=== PATIENT | male | born 1960 | race Caucasian/White ===

== ENCOUNTER 2016-11-01 06:46 | Day surgery (SDC) | payer MEDICARE, OTHER ==
[~2016-11-01] VITALS: Ht 175.3 cm; Wt 66.0 kg
[~2016-11-01 06:46] MED LIST: AMBIEN DPS5 MG PO; APRESOLINE-DPS50 MG PO; CARVEDILOL25 MG PO; COREG25 MG PO; EMLA CREAM 2.5%5 GM TP; HYDROCODONE 7.7.5 MG PO; LASIX DPS80 MG PO; MIRALAX PACKET17 GM PO; NORVASC DPS10 MG PO; SENOKOT S1 TAB PO; VELPHORO500 MG PO; ZESTRIL DPS40 MG PO; ZOFRAN4 MG PO
[2016-11-26] MEDS ORDERED: COUMADIN DPS2 MG PO (20:34)
[2016-11-26] MEDS ORDERED: VIAGRA50 MG PO (20:34)
[2016-11-26] MEDS ORDERED: NITROSTAT0.4 MG SL (20:35)
[2016-11-26] MEDS ORDERED: RENAGEL800 MG PO (20:35)
== END 2016-11-01 10:49 | disposition home or self-care (01) ==
LOC: RAD.S 06:46 → EDSTATUS 08:00 → RAD.S 10:49
PROC: B51WYZZ Fluoroscopy of Dialysis Shunt/Fistula using Other Contrast (ICD-10-PCS; principal; 2016-11-01)
DX: T82.858A Stenosis of other vascular prosthetic devices, implants and grafts, initial encounter (principal); N18.6 End stage renal disease; Z79.899 Other long term (current) drug therapy; Z88.0 Allergy status to penicillin; Z88.8 Allergy status to other drugs, medicaments and biological substances; Z88.7 Allergy status to serum and vaccine

== ENCOUNTER 2016-11-11 02:46 | Emergency (ER) | payer MEDICARE, OTHER ==
[2016-11-26] MEDS ORDERED: VIAGRA50 MG PO (20:34)
[2016-11-26] MEDS ORDERED: COUMADIN DPS2 MG PO (20:34)
[2016-11-26] MEDS ORDERED: RENAGEL800 MG PO (20:35)
[2016-11-26] MEDS ORDERED: NITROSTAT0.4 MG SL (20:35)
--- NOTE | 2016-12-24 18:10 | ER ---
ADMIT: 11/11/2016 RM/LOC: ER [facility] MR#: [id number] 2620 [facility] [address] [place] [phone] GUSTAVO LENNON [address] [place] [address] Emergency Room Report SEX: M AGE: 56 : 1960 DATE: 11/11/2016 ADDENDUM: CHIEF COMPLAINT: Needs dialysis. HISTORY OF PRESENT ILLNESS: The patient is a 56-year-old male, presented to an outside facility because he had some shortness of breath with acute onset. He was treated there, and they were going to admit him, but they do not have inpatient dialysis. He was breathing much better, but they sent to our facility. By the time he got to our facility, he was essentially back at his baseline. He had no complaints. He states this happened many times in the past. He denies any chest pain or shortness of breath at this time. No abdominal pain. No nausea. No vomiting. No fevers, chills, or recent illness. PAST MEDICAL HISTORY: Significant for end-stage renal disease on dialysis, COPD, CHF, and renal failure. MEDICATIONS: See nurse's note. ALLERGIES: SEE NURSE'S NOTE. SOCIAL HISTORY: The patient still smokes, denies drug or alcohol use. PHYSICAL EXAMINATION: VITAL SIGNS: Blood pressure 178/97, pulse 87, respirations 16, temp 97, and sats 97% on 2 L. EMERGENCY DEPARTMENT COURSE: The patient had actually no complaints while he was in the ER. We were able to get the patient off oxygen and his sats stayed in the mid 90s and he is breathing comfortably and his blood pressure, heart rate, and respiratory rate were normal. The patient is set up for dialysis today in [place]. Due to the fact that he was stable, he did not require admission at this time, but we did get him set up to stay at a temporary room at the hospital as he has no ride and could not drive home and go back for his dialysis, so he was essentially discharged, but stayed in an apartment type setting and plan is to have him go to his dialysis later today. DIAGNOSES: 1. Shortness of breath, resolved. 2. End-stage renal disease, dialysis dependent to get dialysis later today. Abel Milligan MD/ trish JOB #: [id number] CC: Abel Milligan MD, Attending Physician ADMIT: 11/11/2016 RM/LOC: [facility] MR#: [id number] [address] [place] [phone] GUSTAVO LENNON [address] [place] [address] Emergency Room Report SEX: M AGE: 56 : 1960 Briana Marrero MD, Family Physician
== END 2016-11-11 05:00 | disposition home or self-care (01) ==
LOC: ER 02:46
DX: N18.6 End stage renal disease (principal); I13.2 Hypertensive heart and chronic kidney disease with heart failure and with stage 5 chronic kidney disease, or end stage renal disease; I50.9 Heart failure, unspecified; E11.9 Type 2 diabetes mellitus without complications; Z99.2 Dependence on renal dialysis; Z79.899 Other long term (current) drug therapy

== ENCOUNTER 2016-11-24 04:59 | Observation (INO) | payer MEDICARE, OTHER ==
[~2016-11-24] VITALS: Ht 175.3 cm; Wt 65.2 kg
--- NOTE | 2016-11-25 15:49 | DS ---
ADMIT: 11/24/2016 RM/LOC: 408 [facility] MR#: [id number] [address] [facility] [address] [place] [phone] GUSTAVO LENNON [address] [place] [address] Discharge Summary SEX: M AGE: 56 : 1960 ADMISSION DATE: 11/24/2016 DISCHARGE DATE: 11/24/2016 CHIEF COMPLAINT: Shortness of breath. Positive palpitations. HISTORY OF PRESENT ILLNESS: The patient is a 56-year-old gentleman. Went to the emergency room while down in [place] last night for some anxiety and shortness of breath. The patient reports that he got some relief with some anxiety medicine or so down in the emergency room down there and was about ready to go and then had palpitations. Found to be in atrial fibrillation, on monitor. Normally dialyzes on Monday, Monday, Monday and he had a normal run of dialysis yesterday, although reports he got some leg cramps. Otherwise states he feels like he is at his dry weight. No increased shortness of breath. No chest pain. Distant history of cardiac arrest. Longstanding history of medical nonadherence and noncompliance. Reports he has been taking his medication as prescribed now when he can recall his doses reasonably well. States he took his carvedilol yesterday he recalls. Otherwise, no recent fevers or chills. PAST MEDICAL HISTORY: 1. End-stage renal disease, on dialysis. 2. Tobacco abuse. 3. Hypertension, poorly controlled. 4. History of recurrent flash pulmonary edema. 5. Tibial fracture two years ago. 6. History of cardiac arrest. MEDICATIONS: 1. Amlodipine. 2. Lisinopril. 3. Hydralazine. 4. Coreg 25 mg p.o. b.i.d. 5. Lasix. 6. Nitroglycerin. 7. Viagra p.r.n. SOCIAL HISTORY: Smokes, lives at home alone. REVIEW OF SYSTEMS: As per HPI. Otherwise, completely reviewed and negative. PHYSICAL EXAMINATION: VITAL SIGNS: Temperature 98.3, pulse 79, respiratory rate 18, blood pressure 168/86, O2 saturation 91% on room air. GENERAL: He is alert and oriented x3. No acute distress. Talkative. HEENT: Normocephalic, atraumatic. Pupils are equal bilaterally. No icterus. Dry mucous membranes. NECK: No lymphadenopathy. Soft, supple. Trachea midline. LUNGS: He has rales present bilaterally posteriorly. HEART: Regular rate and rhythm. No murmurs, rubs, or gallops. ABDOMEN: Soft, nontender, nondistended. Bowel sounds present. ADMIT: 11/24/2016 RM/LOC: 408 [facility] MR#: [id number] [address] [place] [phone] GUSTAVO LENNON [address] [place] [address] Discharge Summary SEX: M AGE: 56 : 1960 EXTREMITIES: No cyanosis, clubbing, or edema. MUSCULOSKELETAL: 5/5 strength in all 4 extremities. NEUROLOGICAL: No focal deficits noted. Cranial nerves II through XII grossly intact. LABORATORY AND X-RAY DATA: Reviewed from outside hospital down in [place]. Potassium 4.4. Creatinine is as expected. Hemoglobin okay. EKG reviewed. Atrial fibrillation with RVR. Tele reviewed shows sinus rhythm now. ASSESSMENT/PLAN: 1. New onset atrial fibrillation with RVR (rapid ventricular response). 2. End-stage renal disease. 3. Tobacco abuse. 4. Hypertension. 5. Medical noncompliance. PLAN: At this point in time, he has converted to sinus rhythm with some beta suleman overnight, lower dose. I suspect that he is really not taking his beta suleman regularly although he states he is. We will just increase his carvedilol to 37.5 mg b.i.d. He had a similar type episode about two weeks ago. We will get him in to see Cardiology. May benefit from antiarrhythmic in the future. Had long discussion regarding the benefits and risks of anticoagulation. He was ultimately agreeable to Coumadin. We will start a very low dose and have him get followup lab on Monday and strongly reiterated to him that he needs to make sure he gets his INR drawn and we discussed risks of bleeding, etc. at length. We will start low dose 2 mg daily given history of alcohol use in the past. He will follow up with Dr. Marrero in 5-10 days. He will establish cardiology in 10-14 days. DISCHARGE MEDICATIONS: For discharge medications, please see discharge med list. Notably, he will be on 37.5 mg Coreg b.i.d. as well as Coumadin 2 mg daily starting today. Chase Juarez MD/ vdg JOB #: [id number] CC: Briana Marrero MD, Attending Physician Briana Marrero MD, Family Physician
[2016-11-26] MEDS ORDERED: VIAGRA50 MG PO (20:34)
[2016-11-26] MEDS ORDERED: COUMADIN DPS2 MG PO (20:34)
[2016-11-26] MEDS ORDERED: NITROSTAT0.4 MG SL (20:35)
[2016-11-26] MEDS ORDERED: RENAGEL800 MG PO (20:35)
--- NOTE | 2016-11-27 01:36 | ER ---
ADMIT: 11/24/2016 RM/LOC: 408 [facility] MR#: [id number] 2620 [facility] [address] [place] [phone] GUSTAVO LENNON [address] [place] [address] Emergency Room Report SEX: M AGE: 56 : 1960 DATE: 11/24/2016 ADDENDUM: CHIEF COMPLAINT: New-onset AFib. HISTORY OF PRESENT ILLNESS: The patient is a 56-year-old male, who is transferred to us from [place] for new-onset AFib and possibly he may require inpatient dialysis. He has a history of poorly controlled hypertension and noncompliance and he has subsequently developed end-stage renal disease, requiring dialysis. He presented to the outside hospital today with about 1 hour of shortness of breath. He was worked up in their facility and had blood work done, which showed some stable anemia, elevated creatinine which is not new for him, normal cardiac enzymes. A chest x-ray was done and compared to previous apparently was unchanged, and an EKG showed sinus rhythm. He was given albuterol and benzodiazepine, he was going to be discharged home, they noticed he was in AFib on their monitor. They repeated an EKG, which did show AFib. The patient states he did not have a history of AFib, so they planned to admit him for workup of new-onset AFib, but as he is dialysis dependent, they were not comfortable keeping in their facility in case he needed dialysis during this workup. He was therefore transferred to our facility. REVIEW OF SYSTEMS: The patient currently states his breathing has improved. He has not had any chest pain. He has not had any nausea, vomiting, or abdominal pain. No change in bowel or bladder function. PAST MEDICAL HISTORY: Significant for hypertension; end-stage renal disease, on dialysis; history of flash pulmonary edema; history of respiratory failure. SOCIAL HISTORY: The patient smokes, denies drug use. LABORATORY DATA: See nurse's note. ALLERGIES: SEE NURSE'S NOTE. PHYSICAL EXAMINATION: VITAL SIGNS: Blood pressure is 163/94, pulse 111, respirations 18, temperature 97.7, saturations 96% on room air. HEENT: Head is atraumatic. Pupils are equally round and reactive to light. HEART: Tachycardic, irregular. LUNGS: Clear to auscultation. ABDOMEN: Soft. SKIN: Warm and dry. EXTREMITIES: He has no pedal edema noted. LABORATORY DATA: Labs from the outside facility were reviewed. And he has a white count of 11.9, hemoglobin of 10.7, troponin of 0.02. ABG showed a pH 7.4, pCO2 of 50, and a PO2 of 102. Creatinine is 4.7, BNP was 37,000. ADMIT: 11/24/2016 RM/LOC: [address] [place] [address] MR#: [id number] [address] [place] [phone] GUSTAVO LENNON [address] [place] [address] Emergency Room Report SEX: M AGE: 56 : 1960 EMERGENCY DEPARTMENT COURSE: When the patient presented, he was tachycardic, rates between 90s and 115. He was hypertensive also. The patient was breathing without difficulty, was in no distress. Since his labs had just been done in the last couple of hours, I did not repeat those at this time. I spoke to Dr. Juarez as the patient normally sees Dr. Marrero, and will get the patient admitted for his new-onset AFib. He is admitted in stable condition. DIAGNOSES: 1. New-onset atrial fibrillation. 2. End-stage renal disease, dialysis dependent. 3. Hypertension. Abel Milligan MD/ trish JOB #: [id number] CC: Briana Marrero MD, Attending Physician Briana Marrero MD, Family Physician
== END 2016-11-24 18:47 | disposition home or self-care (01) ==
LOC: ER 04:59 → 4PCU 05:30
PROVIDERS: ADMIT Internal Medicine
DX: I48.91 Unspecified atrial fibrillation (principal); I12.0 Hypertensive chronic kidney disease with stage 5 chronic kidney disease or end stage renal disease; N18.6 End stage renal disease; F17.200 Nicotine dependence, unspecified, uncomplicated; Z79.899 Other long term (current) drug therapy; Z88.0 Allergy status to penicillin; Z88.7 Allergy status to serum and vaccine

== ENCOUNTER 2016-11-28 05:18 | Emergency (ER) | payer MEDICARE, OTHER ==
[~2016-11-28 05:18] MED LIST changes: +COUMADIN DPS2 MG PO; +NITROSTAT0.4 MG SL; +RENAGEL800 MG PO; +VIAGRA50 MG PO
--- NOTE | 2016-11-28 18:58 | ER ---
ADMIT: 11/28/2016 RM/LOC: ER [facility] MR#: [id number] [address] [phone] GUSTAVO LENNON [address] [place] [address] Emergency Room Report SEX: M AGE: 56 : 1960 DATE: 11/28/2016 The patient is a 56-year-old male with end-stage renal disease, COPD, pulmonary hypertension, admits to eating [employer] last night awakening with severe shortness of breath, wisely did albuterol and nitroglycerin prior to arrival with relief of shortness of breath, thought he better get checked out since he has had flash pulmonary edema in the past. Exam remarkable for nontoxic, afebrile male. Blood pressure 168/89 on admission, 145/80 at discharge; SaO2 of 96%. Chest x-ray showed minimal CHF. The patient refused to wait for lab or EKG, due to see Cardiology tomorrow, does have dialysis later today. Lab did return hemoglobin 9.9, troponin less than 0.015, creatinine 12.1, magnesium 2.9, normal potassium. Again, cautioned the patient not the eat high-sodium diet. Follow up as scheduled. Florencio Hudson MD/ trish JOB #: [id number] CC: Florencio Hudson MD, Attending Physician Briana Marrero MD, Family Physician MD Yovany Chaudhry MD
== END 2016-11-28 06:12 | disposition home or self-care (01) ==
LOC: ER 05:18
DX: J81.1 Chronic pulmonary edema (principal); I27.2 Other secondary pulmonary hypertension; I12.0 Hypertensive chronic kidney disease with stage 5 chronic kidney disease or end stage renal disease; N18.6 End stage renal disease; Z99.2 Dependence on renal dialysis

== ENCOUNTER 2016-12-02 03:45 | Emergency (ER) | payer MEDICARE, OTHER ==
--- NOTE | 2016-12-02 19:35 | ER ---
ADMIT: 12/02/2016 RM/LOC: ER [facility] MR#: [id number] 2620 [facility] [address] [place] [phone] SAJI GUSTAVO D [address] [place] [address] Emergency Room Report SEX: M AGE: 56 : 1960 DATE: 12/02/2016 HISTORY OF PRESENT ILLNESS: The patient is a 56-year-old male with a past medical history of atrial fibrillation, end-stage kidney disease, hypertension, and pulmonary hypertension too who was transferred from [facility] for dialysis. Allegedly, the patient became short of breath and has high blood pressure. In the [facility], he received 40 mg of Lasix and also nitroglycerin sublingual. The patient's symptoms completely resolved, and he came back to the baseline and the patient was transferred to the ER for dialysis. The patient usually gets dialysis session at Monday, Monday, and Monday. PHYSICAL EXAMINATION: VITAL SIGNS: In the ER, the patient was in no pain or distress. The patient was afebrile, lying in bed, in no distress. O2 saturation on room air was 96%. Respiratory rate was 18, and blood pressure was also stable with systolic of 160s over 80s diastolic. HEAD AND NECK: Normal. There were no bruit on the neck. CHEST: Clear bilaterally without any crackles. HEART: Normal heart sounds without any gallop or murmur. ABDOMEN: Soft. EXTREMITIES: There is no cyanosis. There is no tenderness in the lower extremities and there is no swelling. EMERGENCY DEPARTMENT COURSE: At this stage, the patient is stable and in no obvious distress. The case was discussed with Dr. Marrero, and she also agrees that the patient can be discharged to home to be followed up as an outpatient for dialysis session. Plan was discussed with the patient, and he agreed upon it, and he was discharged to home. Avelino Madera MD/ trish JOB #: [id number] CC: Avelino Madera MD, Attending Physician Briana Marrero MD, Family Physician
== END 2016-12-02 04:40 | disposition home or self-care (01) ==
LOC: ER 03:45
DX: I12.0 Hypertensive chronic kidney disease with stage 5 chronic kidney disease or end stage renal disease (principal); N18.6 End stage renal disease; I48.91 Unspecified atrial fibrillation

== ENCOUNTER 2016-12-07 03:47 | Emergency (ER) | payer MEDICARE, OTHER ==
--- NOTE | 2016-12-10 13:14 | ER ---
ADMIT: 12/07/2016 RM/LOC: ER [facility] MR#: [id number] 2620 [facility] [address] [place] [phone] GUSTAVO LENNON [address] [place] [id number] Emergency Room Report SEX: M AGE: 56 : 1960 DATE: 12/07/2016 HISTORY OF PRESENT ILLNESS: The patient is a 56-year-old male with a past medical history of chronic kidney disease, on dialysis, which had session yesterday and took off about 2 pounds of fluid; pulmonary hypertension; and CHF, was transferred to the ER from [place] with chief complaint of shortness of breath. Allegedly, the patient felt short of breath and took 3 nitroglycerin sublingual, which resolved symptoms. Allegedly, the patient developed hypoxia with O2 saturation of 70s, which was resolved immediately and the [place] [facility] [place]YSICAL EXAMINATION: VITAL SIGNS: In the ER, the patient was in no pain or distress. The patient is sitting in bed quietly without any obvious pain or without any respiratory distress. The patient is afebrile. The patient is not tachycardic. O2 saturations 95% on room air. HEAD AND NECK: Normal. CHEST: Clear bilaterally. HEART: Normal heart sounds. ABDOMEN: Soft. EXTREMITIES: No swelling or tenderness in his extremities. The rest of the physical exam is noncontributory. The patient states today when he felt short of breath, he took 3 nitroglycerin sublingual, which controlled the pain and high blood pressure effectively. The patient has been seen by primary care doctor, Dr. Marrero yesterday in the clinic and has close followups. The patient states yesterday had dialysis session. Tomorrow would have another session, which he would be compliant. The patient has no shortness of breath or hypoxia in [place] [facility] and was stable to be discharged to home. Return precautions and follow up with primary doctor as needed. Avelino Madera MD/ trish JOB #: [id number] CC: Avelino Madera MD, Attending Physician Briana Marrero MD, Family Physician
== END 2016-12-07 07:00 | disposition home or self-care (01) ==
LOC: ER 03:47
DX: R06.02 Shortness of breath (principal); F17.200 Nicotine dependence, unspecified, uncomplicated; N18.6 End stage renal disease; I50.9 Heart failure, unspecified; Z99.2 Dependence on renal dialysis

== ENCOUNTER 2016-12-09 00:18 | Emergency (ER) | payer MEDICARE, OTHER ==
--- NOTE | 2016-12-13 20:15 | ER ---
ADMIT: 12/09/2016 RM/LOC: ER [facility] MR#: [id number] 2620 [facility] [address] [place], [place] [phone] GUSTAVO LENNON [address] [place] [address] Emergency Room Report SEX: M AGE: 56 : 1960 DATE: 12/09/2016 TIME: 0018 hours. Please see my T-sheet for complete H and P. HISTORY OF PRESENT ILLNESS: Briefly, the patient is a 56-year-old who comes in transferred from [place] for a chest pain rule-out. He is a dialysis patient, but they do not have Nephrology over there. He is pain-free, enzymes are negative, but they transferred here for us to evaluate. PHYSICAL EXAMINATION: VITAL SIGNS: His blood pressure is 159/89, pulse 73, respirations 16, temp 97.8, saturating 93% on room air. GENERAL: No acute distress. HEENT: Grossly normal. LUNGS: Clear. HEART: Regular. ABDOMEN: Soft. SKIN: No rash. NEUROLOGIC: Alert and oriented. Nonfocal. EMERGENCY DEPARTMENT COURSE: His EKG was sinus rhythm, no acute changes done here. His troponin, which was a repeat, was negative. I reviewed his workup at the outside facility. He has a Holter monitor on. He recently had a stress test that was negative. Vital signs are all stable. He is resting comfortably here, so essentially he has been ruled out. I talked to Dr. Marrero on the phone. She is well aware of this patient. She recommended he be discharged. He was okay with that. ASSESSMENT: 1. Chest pain, resolved. Two sets of enzymes are negative. He is pain- free, asymptomatic at this time. 2. Dialysis patient. PLAN: Follow up with Dr. Marrero. Return if worse. Continue medications. Joe Santos MD/ trish JOB #: [id number] CC: Joe Santos MD, Attending Physician Briana Marrero MD, Family Physician
== END 2016-12-09 02:01 | disposition home or self-care (01) ==
LOC: ER 00:18
DX: R07.89 Other chest pain (principal); I13.2 Hypertensive heart and chronic kidney disease with heart failure and with stage 5 chronic kidney disease, or end stage renal disease; N18.6 End stage renal disease; I50.9 Heart failure, unspecified; Z99.2 Dependence on renal dialysis; Z87.891 Personal history of nicotine dependence